=== PATIENT | male | born 1965 | race Caucasian/White ===

== ENCOUNTER 2018-01-01 09:46 | Day surgery (SDC) | payer OTHER ==
[2018-01-01] MEDS ORDERED: NS 1,000 ML IV (10:00)
[2018-01-01] MEDS ORDERED: LIDOCAINE 2% INJ 100 MG/5 ML SDV (FOR ANES.) As Ordered (12:04)
[2018-01-01] MEDS ORDERED: PROPOFOL 500 MG/50 ML VIAL As Ordered (12:04)
== END 2018-01-01 12:43 | disposition home or self-care (01) ==
LOC: M OPP 09:46
DX: Z12.11 Encounter for screening for malignant neoplasm of colon (principal); K64.0 First degree hemorrhoids; K57.30 Diverticulosis of large intestine without perforation or abscess without bleeding; M19.90 Unspecified osteoarthritis, unspecified site; Z80.3 Family history of malignant neoplasm of breast
CPT/HCPCS: 45378